=== PATIENT | female | born 1990 | race American Indian/Alaskan Native ===

== ENCOUNTER 2018-11-25 22:08 | Emergency (ER) | payer SELFPAY ==
[2018-11-25 23:03] LABS: Basophils % (Auto) 0.2 % (0.0-1.8); Eosinophils # (Auto) 0.2 K/mm3 (0.0-0.4); Eosinophils % (Auto) 2.2 % (0.0-4.3); Hematocrit 35.4 % (30.3-42.9); Hemoglobin 11.4 gm/dl (10.1-14.3); Lymphocytes # (Auto) 2.6 K/mm3 (1.2-5.4); Lymphocytes % (Auto) 32.8 % (13.4-35.0); Mean Corpuscular HGB Conc 32 % (30-34); Mean Corpuscular Volume 76 fl (79-97); Monocytes # (Auto) 0.7 K/mm3 (0.0-0.8); Monocytes % (Auto) 8.4 % (0.0-7.3); Platelet Count 380 K/mm3 (140-440); Red Blood Count 4.68 M/mm3 (3.65-5.03); Red Cell Distribution Width 17.4 % (13.2-15.2)
[2018-11-25 23:16] LABS: Alanine Aminotransferase 9 units/L (7-56); Albumin 4.5 g/dL (3.9-5); BUN/Creatinine Ratio 24; Blood Urea Nitrogen 17 mg/dL (7-17); Calcium 9.3 mg/dL (8.4-10.2); Hemolysis Index 0
[2018-11-26] MEDS ORDERED: ONDANSETRON 4 MG/2 ML INJ IV ONE (00:45)
[2018-11-26] MEDS ORDERED: SODIUM CHLORIDE 0.9% 1000 ML 1,000 ML IV ONE (00:45)
[2018-11-26 01:07] VITALS: BP 116/82
[2018-11-26 01:29] LABS: Bacteria,Urine 1+ /HPF (Negative); Bilirubin,Urine NEG (Negative); Blood,Urine SM (Negative); Color,Urine Yellow (Yellow); Mucus,Urine 3+ /HPF; Protein,Urine <15 mg/dL mg/dL (Negative); Urobilinogen,Urine < 2.0 mg/dL (<2.0)
--- NOTE | 2018-11-26 02:25 | Emergency Department Report ---
ED N/V/D HPI - General Chief complaint: Nausea/Vomiting/Diarrhea Stated complaint: VOMITTING/STOMACH PAIN Source: patient Mode of arrival: Ambulatory Limitations: No Limitations - History of Present Illness Initial comments: Patient is a 28-year-old female presented to the ED with complaint of acute onset persistent intermittent nausea and vomiting with diarrhea for the last 2 days. Patient states that the last 6 hours she said multiple episodes of nausea and vomiting and has not been able to keep anything down. Patient denies dizziness, abdominal pain, dysuria, urinary frequency and urgency, vaginal bleeding, syncope, chest pain, shortness of breath or sore throat. MD complaint: nausea, vomiting, diarrhea -: Sudden, days(s) (2) Description of Vomiting: watery, bilious Description of Diarrhea: water Associated Abdominal Pain: Yes Location: diffuse Radiation: none Severity: moderate Pain Scale: 5 Quality: cramping, sharp Consistency: constant Improves with: none Worsens with: none Associated Symptoms: denies other symptoms, myalgias, loss of appetite, nausea/vomiting. denies: chest pain, cough, diaphoresis, fever/chills, headaches, malaise, rash, dysuria, shortness of breath, weakness - Related Data Previous Rx's Medication Instructions Recorded Last Taken Type Sulfamethoxazole/Trimethoprim 1 each PO BID #20 tablet 01/08/15 Unknown Rx [Bactrim DS TAB] Acetaminophen/Codeine [Tylenol 1 tab PO Q6H PRN #15 tab 01/16/15 Unknown Rx /Codeine # 3 tab] Clindamycin [Clindamycin CAP] 600 mg PO BID #28 capsule 01/16/15 Unknown Rx Dicyclomine [Bentyl] 20 mg PO Q6H PRN #20 tablet 11/26/18 Unknown Rx Ondansetron [Zofran Odt] 4 mg PO Q6HR PRN #21 tab.rapdis 11/26/18 Unknown Rx raNITIdine HCl [Zantac] 150 mg PO Q12H #30 tablet 11/26/18 Unknown Rx Allergies Allergy/AdvReac Type Severity Reaction Status Date / Time No Known Allergies Allergy Verified 01/08/15 04:44 ED Review of Systems ROS: Stated complaint: VOMITTING/STOMACH PAIN Other details as noted in HPI Constitutional: denies: chills, fever Eyes: denies: eye pain, eye discharge, vision change ENT: denies: ear pain, throat pain Respiratory: denies: cough, shortness of breath, wheezing Cardiovascular: denies: chest pain, palpitations Endocrine: no symptoms reported Gastrointestinal: nausea, vomiting, diarrhea. denies: abdominal pain Genitourinary: denies: urgency, dysuria, discharge Musculoskeletal: denies: back pain, joint swelling, arthralgia Skin: denies: rash, lesions Neurological: denies: headache, weakness, paresthesias Psychiatric: denies: anxiety, depression Hematological/Lymphatic: denies: easy bleeding, easy bruising ED Past Medical Hx - Past Medical History Previous Medical History?: No - Surgical History Past Surgical History?: No - Social History Smoking Status: Never Smoker Substance Use Type: Marijuana - Medications Home Medications: Home Medications Medication Instructions Recorded Confirmed Last Taken Type Sulfamethoxazole/Trimethoprim 1 each PO BID #20 tablet 01/08/15 Unknown Rx [Bactrim DS TAB] Acetaminophen/Codeine [Tylenol 1 tab PO Q6H PRN #15 tab 01/16/15 Unknown Rx /Codeine # 3 tab] Clindamycin [Clindamycin CAP] 600 mg PO BID #28 capsule 01/16/15 Unknown Rx Dicyclomine [Bentyl] 20 mg PO Q6H PRN #20 tablet 11/26/18 Unknown Rx Ondansetron [Zofran Odt] 4 mg PO Q6HR PRN #21 tab.rapdis 11/26/18 Unknown Rx raNITIdine HCl [Zantac] 150 mg PO Q12H #30 tablet 11/26/18 Unknown Rx ED Physical Exam - General Limitations: No Limitations General appearance: alert, in no apparent distress - Head Head exam: Present: atraumatic, normocephalic, normal inspection - Eye Eye exam: Present: normal appearance, PERRL, EOMI Pupils: Present: normal accommodation - ENT ENT exam: Present: normal exam, normal orophraynx, mucous membranes moist, TM's normal bilaterally, normal external ear exam - Neck Neck exam: Present: normal inspection, full ROM - Respiratory Respiratory exam: Present: normal lung sounds bilaterally. Absent: respiratory distress, wheezes, rales, rhonchi, chest wall tenderness, accessory muscle use, decreased breath sounds - Cardiovascular Cardiovascular Exam: Present: regular rate, tachycardia, normal heart sounds. Absent: systolic murmur, diastolic murmur, rubs, gallop - GI/Abdominal GI/Abdominal exam: Present: soft, normal bowel sounds. Absent: distended, tenderness, guarding, hypoactive bowel sounds, organomegaly - Extremities Exam Extremities exam: Present: normal inspection, full ROM, normal capillary refill - Back Exam Back exam: Present: normal inspection, full ROM. Absent: CVA tenderness (L), muscle spasm, paraspinal tenderness - Neurological Exam Neurological exam: Present: alert, oriented X3, CN II-XII intact, normal gait, reflexes normal - Psychiatric Psychiatric exam: Present: normal affect, normal mood - Skin Skin exam: Present: warm, dry, intact, normal color. Absent: rash ED Course Vital Signs 11/25/18 11/26/18 22:12 01:05 Temperature 98.1 F Pulse Rate 102 H 72 Respiratory 18 14 Rate Blood Pressure 113/74 Blood Pressure 116/82 [Left] O2 Sat by Pulse 97 98 Oximetry - Reevaluation(s) Reevaluation #1: 11/27/18 04:43 This is a 28-year-old female who presented to the ED with nausea and vomiting with diarrhea. In the ED, patient is alert and oriented 3 and is not in distress with a mild tachycardia in triage. Lab test results were reviewed and are nonactionable. Patient was treated for nausea and vomiting in the ED and on reevaluation, patient's nausea and vomiting resolved, patient passed oral fluid challenge in the ED. Patient was discharged home on antiemetics and advised to maintain a clear liquid diet for 12-24 hours, and follow-up with her primary care physician in 5-7 days for reevaluation or return to the ED immediately if symptoms get worse. 11/27/18 04:44 ED Medical Decision Making - Lab Data Result diagrams: 11/25/18 22:35 11/25/18 22:35 - Medical Decision Making This is a 28-year-old female who presented to the ED with nausea and vomiting with diarrhea. In the ED, patient is alert and oriented 3 and is not in distress with a mild tachycardia in triage. Lab test results were reviewed and are nonactionable. Patient was treated for nausea and vomiting in the ED and on reevaluation, patient's nausea and vomiting resolved, patient passed oral fluid challenge in the ED. Patient was discharged home on antiemetics and advised to maintain a clear liquid diet for 12-24 hours, and follow-up with her primary c are physician in 5-7 days for reevaluation or return to the ED immediately if symptoms get worse. - Differential Diagnosis Viral gastroenteritis; UTI; GERD Critical care attestation.: If time is entered above; I have spent that time in minutes in the direct care of this critically ill patient, excluding procedure time. ED Disposition Clinical Impression: Viral gastroenteritis, Nausea, vomiting and diarrhea Disposition: TO HOME OR SELFCARE Is pt being admited?: No Does the pt Need Aspirin: No Condition: Stable Instructions: Acute Nausea and Vomiting (ED), Abdominal Pain (ED) Additional Instructions: Maintain a clear liquid diet for 12-24 hours and take medications with food, drink plenty of fluids and follow-up with your primary care physician in 5-7 days for reevaluation Prescriptions: Dicyclomine [Bentyl] 20 mg PO Q6H PRN #20 tablet PRN Reason: Pain , Severe (7-10) raNITIdine HCl [Zantac] 150 mg PO Q12H #30 tablet Ondansetron [Zofran Odt] 4 mg PO Q6HR PRN #21 tab.rapdis PRN Reason: Nausea Referrals: [facility] [Outside] - 3-5 Days Forms: Work/School Release Form(ED) Time of Disposition: 02:23 Print Language: SPANISH
== END 2018-11-26 02:58 | disposition home or self-care (01) ==
LOC: ED 22:08
DX: A08.4 Viral intestinal infection, unspecified (principal); R11.2 Nausea with vomiting, unspecified; F12.10 Cannabis abuse, uncomplicated; Z79.899 Other long term (current) drug therapy
CPT/HCPCS: 36415; 80053; 81001; 83690; 84703; 85025; 96361; 96374; 99283; J2405; J7030